=== PATIENT | male | born 1940 | race Hispanic/Latino ===

== ENCOUNTER 2017-06-01 06:04 | Day surgery (SDC) | payer OTHER ==
[2017-05-31 12:09] VITALS: BP 153/72
[2017-06-01] VITALS (10 sets, daily range): BP systolic 144–169; BP diastolic 64–82
[~2017-06-01] VITALS: Ht 168.9 cm; Wt 98.2 kg
[~2017-06-01 06:04] MED LIST: ACET-2743 PO; ATOR40TA71 PO; CLON0.3T PO; INSU100V3 IJ; INSU300I SQ; MULT-1192 PO; PHARMACY COMMUNICATION MISC SCH; PRED5TAB PO
[2017-06-01] MEDS ORDERED: ISOVUE-M 200 20 ML VIAL IT ONE (07:04)
[2017-06-01] MEDS ORDERED: MYCO250C36 PO (07:14)
[2017-06-01] MEDS ORDERED: CYCL25CA7 PO (07:14)
[2017-06-01 08:13] LABS: APPEARANCE,CSF CLEAR (CLEAR); COLOR,CSF COLORLESS (COLORLESS); CSF TUBE NUMBER 2; RED BLOOD CELL1,CSF 220 CMM (0-0); WHITE BLOOD CELL1,CSF 2 CMM (0-5)
[2017-06-21] MEDS ORDERED: CHLORTHALIDONE PO (12:59)
[2017-06-21] MEDS ORDERED: CYAN-35 PO (12:59)
[2017-06-21] MEDS ORDERED: ASPI-555 PO (12:59)
[2017-06-21] MEDS ORDERED: CILO100T PO (12:59)
[2017-06-21] MEDS ORDERED: FOLI0.8C PO (12:59)
[2017-06-21] MEDS ORDERED: VERA-7 PO (12:59)
[2017-06-21] MEDS ORDERED: VALS80TA29 PO (12:59)
== END 2017-06-01 11:50 | disposition home or self-care (01) ==
LOC: DAH 06:04
PROVIDERS: ATTEND Neurological Surgery
DX: M54.16 Radiculopathy, lumbar region (principal); M48.061 Spinal stenosis, lumbar region without neurogenic claudication; E11.9 Type 2 diabetes mellitus without complications; Z79.4 Long term (current) use of insulin; Z79.899 Other long term (current) drug therapy
CPT/HCPCS: 62304; 72132; 82948 ×2; 89051; 93005; Q9966

== ENCOUNTER 2017-06-23 06:00 | Observation (INO) | payer OTHER ==
[2017-06-21 12:07] VITALS: BP 158/63
[2017-06-21 12:33] LABS: BASOPHILS % (AUTO) 0.7 % (0.0-5.0); HEMATOCRIT 40.1 % (42-54); LYMPHOCYTES % (AUTO) 22.8 % (21.0-51.0); MEAN CORPUSCULAR HEMOGLOBIN 31.5 pg (27.0-33.0); MEAN CORPUSCULAR HGB CONC 34.3 g/dL (32.0-36.0); MEAN CORPUSCULAR VOLUME 91.9 fL (79-99); MONOCYTES % (AUTO) 8.3 % (3.0-13.0); NEUTROPHILS % (AUTO) 65.2 % (40.0-77.0); PLATELET COUNT (AUTO) 136 K/uL (130-400); RED BLOOD CELL COUNT(AUTO) 4.36 MIL/uL (4.50-6.20); RED CELL DISTRIBUTION WIDTH 14.3 % (11.0-15.5); WHITE BLOOD COUNT (AUTO) 10.3 K/uL (4.8-10.8)
[2017-06-21 12:41] LABS: CREATININE 1.1 mg/dL (0.5-1.5); POTASSIUM 3.9 mmol/L (3.5-5.1)
[~2017-06-23] VITALS: Ht 170.2 cm; Wt 97.0 kg
[2017-06-23] VITALS (24 sets, daily range): BP systolic 126–191; BP diastolic 60–91
[~2017-06-23 06:00] MED LIST changes: -ACET-2743 PO; +ASPI-555 PO; +CHLORTHALIDONE PO; +CILO100T PO; +CYAN-35 PO; +CYCL25CA7 PO; +FOLI0.8C PO; -INSU100V3 IJ; -MULT-1192 PO; +MYCO250C36 PO; -PHARMACY COMMUNICATION MISC SCH; +VALS80TA29 PO; +VERA-7 PO
[2017-06-23] MEDS ORDERED: BUPIVACAINE/PF 0.25% 30ML VIAL IJ ONE (06:35)
[2017-06-23] MEDS ORDERED: DURAMORPH PF1 MG/ML 10ML AMP IV ONE (06:37)
[2017-06-23] MEDS ORDERED: BACITRACIN 50,000 UNIT VIAL ONE (06:37)
[2017-06-23] MEDS ORDERED: THROMBIN-JMI 20000 UNIT KIT TP ONE (06:37)
[2017-06-23] MEDS ORDERED: EPINEPHRINE 1 MG/ML AMPULE ONE (06:38)
[2017-06-23] MEDS ORDERED: SODIUM CHLORIDE 0.9% 1000ML 1,000 ML IV ONE (06:39)
[2017-06-23] MEDS ORDERED: CEFAZOLIN SODIUM 1 GM VIAL ONE (06:54)
[2017-06-23] MEDS ORDERED: ONDANSETRON HCL 4 MG/2 ML VIAL ONE ×2 (07:20→09:20)
[2017-06-23] MEDS ORDERED: LIDOCAINE PF 2% 5ML ABBOJECT ONE (07:20)
[2017-06-23] MEDS ORDERED: GLYCOPYRROLATE 0.2 MG/ML 5 ML VIAL ONE (07:20)
[2017-06-23] MEDS ORDERED: PROPOFOL 10 MG/ML 20ML VIAL IV ONE (07:20)
[2017-06-23] MEDS ORDERED: MIDAZOLAM HCL 1 MG/ML 2ML VIAL ONE (07:20)
[2017-06-23] MEDS ORDERED: DEXAMETHASONE SOD PHOSPHATE 10MG/ML 1ML VIAL ONE ×2 (07:20→08:13)
[2017-06-23] MEDS ORDERED: SUCCINYLCHOLINE 200MG/10ML SYR ONE ×2 (07:20→09:20)
[2017-06-23] MEDS ORDERED: FENTANYL CITRATE PF 50 MCG/1 ML 2ML VIAL ONE ×2 (07:21→08:58)
[2017-06-23] MEDS ORDERED: PHENYLEPHRINE HCL 10 MG/ML 1ML VIAL IV ONE (09:20)
[2017-06-23] MEDS ORDERED: ROCURONIUM BROMIDE 10MG/1ML 5ML VL ONE ×2 (09:20)
[2017-06-23] MEDS ORDERED: ARTIFICIAL TEARS 3.5 GM OINTMENT ONE (09:21)
[2017-06-23] MEDS ORDERED: CLONIDINE HCL 0.3 MG TABLET PO PRN (11:00)
[2017-06-23] MEDS ORDERED: MORPHINE SULFATE 2 MG/ML 1ML SYG IVP PRN (11:00)
[2017-06-23] MEDS ORDERED: PROMETHAZINE HCL 25 MG/ML 1ML AMPULE IM PRN (11:00)
[2017-06-23] MEDS ORDERED: CEFAZOLIN 2GM / 50 ML 50 ML IV SCH (11:00)
[2017-06-23] MEDS ORDERED: SODIUM CHLORIDE 0.9% 10 ML VIAL IVP PRN (11:00)
[2017-06-23] MEDS ORDERED: HYDROCODONE/ACETAMINOPHEN 5/325 MG TAB PO PRN (11:00)
[2017-06-23] MEDS ORDERED: CEFAZOLIN SODIUM 1 GM VIAL IVP SCH (12:00)
[2017-06-23] MEDS: DEXAMETHASONE SOD PHOSPHATE 4 MG/ML 1ML VIAL IVP SCH ×3 (13:04→23:26)
[2017-06-23] MEDS: LACTATED RINGERS 1000ML 1,000 ML IV SCH (13:15)
[2017-06-23] MEDS ORDERED: GLUCAGON 1MG KIT 1 MG ML IM PRN (14:00)
[2017-06-23] MEDS ORDERED: DEXTROSE 50%-WATER 50 ML DISP.SYRIN IV PRN (14:00)
[2017-06-23] MEDS: INSULIN HUMULIN R 100 UNIT/ML 3ML SQ SCH ×2 (17:31→21:45)
[2017-06-23] MEDS ORDERED: ATORVASTATIN CALCIUM 40 MG TABLET PO SCH (21:00)
[2017-06-23] MEDS ORDERED: INSULIN GLARGINE 100 UNITS/ML 10 ML VIAL SQ SCH (21:00)
[2017-06-23] MEDS: MYCOPHENOLATE MOFETIL 250 MG CAPSULE PO SCH (21:38)
[2017-06-24] MEDS: LACTATED RINGERS 1000ML 1,000 ML IV SCH (00:10)
[2017-06-24] MEDS: DEXAMETHASONE SOD PHOSPHATE 4 MG/ML 1ML VIAL IVP SCH ×2 (04:48→11:00)
[2017-06-24 05:12] VITALS: BP 157/65
[2017-06-24] MEDS: INSULIN HUMULIN R 100 UNIT/ML 3ML SQ SCH ×2 (06:35→12:17)
[2017-06-24 07:30] VITALS: BP 210/85
[2017-06-24] MEDS: MYCOPHENOLATE MOFETIL 250 MG CAPSULE PO SCH (07:53)
[2017-06-24] MEDS ORDERED: CYANOCOBALAMIN (VITAMIN B-12) 1,000 MCG TABLET PO SCH (09:00)
[2017-06-24] MEDS ORDERED: ASPIRIN 81 MG EC TAB PO SCH (09:00)
[2017-06-24] MEDS ORDERED: VERAPAMIL HCL 240 MG SRTAB PO SCH (09:00)
[2017-06-24] MEDS ORDERED: FOLIC ACID 0.8 MG PO SCH (09:00)
[2017-06-24] MEDS ORDERED: LOSARTAN 50 MG TABLET PO SCH (09:00)
[2017-06-24] MEDS ORDERED: CYCLOSPORINE 75 MG PO SCH (09:00)
[2017-06-24] MEDS ORDERED: CHLORTHALIDONE PO SCH (09:00)
[2017-06-24] MEDS ORDERED: PREDNISONE 5 MG TABLET PO SCH (09:00)
[2017-06-24 11:00] VITALS: BP 197/74
[2017-06-24] MEDS ORDERED: HYDRALAZINE HCL 20 MG/ML VIAL IV SCH (11:45)
== END 2017-06-24 13:50 | disposition home or self-care (01) ==
LOC: DAH 06:00 → DAHIP 06:01 → 4AH 12:57
PROVIDERS: ADMIT Neurological Surgery; ATTEND Neurological Surgery
DX: M48.061 Spinal stenosis, lumbar region without neurogenic claudication (principal); I12.0 Hypertensive chronic kidney disease with stage 5 chronic kidney disease or end stage renal disease; N18.6 End stage renal disease; E11.22 Type 2 diabetes mellitus with diabetic chronic kidney disease; E78.00 Pure hypercholesterolemia, unspecified; E66.9 Obesity, unspecified; Z94.0 Kidney transplant status
CPT/HCPCS: 36415; 63047; 63048 ×2; 72020; 80048; 82948 ×6; 85025; 93005; 96372 ×2; 96374; 96375; 96376 ×2; A4218; A4344; A4510; A4600; A5113; A6219; G0378 ×32; J0171; J0330 ×2; J0360; J0690; J1100 ×5; J1815 ×4; J2001; J2250; J2274; J2370; J2405 ×2; J2704; J3010 ×2; J3490 ×4; J7030 ×2; J7120; J7517 ×2

== ENCOUNTER → 2017-09-05 | Outpatient (CLI) | payer OTHER ==
[~2017-09-05] MED LIST changes: +ACET-66 PO; +CHLO25TA3 PO; +DIAZ5TAB PO; +INSU100V3 SQ; +MULT-603 PO; -VALS80TA29 PO; +VALS80TA30 PO
== END | disposition home or self-care (01) ==
LOC: RAH 12:13
PROVIDERS: ATTEND Neurological Surgery
DX: M47.896 Other spondylosis, lumbar region (principal); M41.86 Other forms of scoliosis, lumbar region; M48.061 Spinal stenosis, lumbar region without neurogenic claudication; I70.0 Atherosclerosis of aorta; M25.78 Osteophyte, vertebrae
CPT/HCPCS: 72100

== ENCOUNTER 2017-09-06 17:43 | Observation (INO) | payer OTHER ==
[2017-09-05 22:57] VITALS: BP 149/72
[~2017-09-06] VITALS: Ht 170.2 cm; Wt 89.9 kg
[~2017-09-06 17:43] MED LIST changes: -ACET-66 PO; -CHLO25TA3 PO; -DIAZ5TAB PO; -INSU100V3 SQ; -MULT-603 PO
[2017-09-06] MEDS ORDERED: ONDANSETRON HCL MDV 20ML 2 MG/ML VIAL ONE (18:29)
[2017-09-06] MEDS ORDERED: FENTANYL CITRATE PF 50 MCG/1 ML 2ML VIAL ONE (18:30)
[2017-09-06 18:45] LABS: BASOPHILS % (AUTO) 0.5 % (0.0-5.0); EOSINOPHILS % (AUTO) 0.2 % (0.0-8.0); HEMATOCRIT 39.2 % (42-54); MEAN CORPUSCULAR HEMOGLOBIN 31.3 pg (27.0-33.0); MEAN CORPUSCULAR HGB CONC 34.4 g/dL (32.0-36.0); MEAN CORPUSCULAR VOLUME 91.2 fL (79-99); MONOCYTES % (AUTO) 6.9 % (3.0-13.0); NEUTROPHILS % (AUTO) 77.4 % (40.0-77.0); PLATELET COUNT (AUTO) 122 K/uL (130-400); RED CELL DISTRIBUTION WIDTH 13.8 % (11.0-15.5); WHITE BLOOD COUNT (AUTO) 10.3 K/uL (4.8-10.8)
[2017-09-06 18:58] LABS: CREATININE 1.2 mg/dL (0.5-1.5); POTASSIUM 3.6 mmol/L (3.5-5.1)
[2017-09-06 19:10] LABS: APPEARANCE,URINE Clear (CLEAR); BILIRUBIN,URINE Small (NEGATIVE); COLOR,URINE Dark Yellow (YELLOW); GLUCOSE, URINE (UA) Negative (NEGATIVE); KETONES,URINE Trace mg/dL (NEGATIVE); LEUKOCYTE ESTERASE ,URINE Trace (NEGATIVE); NITRATE,URINE Negative (NEGATIVE); OCCULT BLOOD,URINE Negative (NEGATIVE); PROTEIN,URINE POS 2+ (NEGATIVE)
[2017-09-06 19:34] LABS: BACTERIA,URINE Rare /HPF (None Seen); HYALINE CASTS, URINE 0-1 /LPF (0-1 /LPF); RBC,URINE None Seen /HPF (0-1); WBC,URINE 0-1 /HPF (0-1)
[2017-09-06] MEDS ORDERED: MORPHINE SULFATE 4 MG/1ML SYG IV PRN (19:45)
[2017-09-06] MEDS ORDERED: DEXTROSE 50%-WATER 50 ML DISP.SYRIN IV PRN (20:15)
[2017-09-06] MEDS ORDERED: GLUCAGON 1MG KIT 1 MG ML IM PRN (20:15)
[2017-09-06] MEDS ORDERED: HYDRALAZINE HCL 20 MG/ML VIAL IV PRN (20:15)
[2017-09-06] MEDS: INSULIN HUMULIN R 100 UNIT/ML 3ML SQ SCH (21:00)
[2017-09-06] MEDS: FAMOTIDINE 20MG TAB 20 MG TAB PO SCH (21:00)
[2017-09-06 22:57] VITALS: BP 149/72
[2017-09-07] MEDS: SODIUM CHLORIDE 0.9% 1000ML 1,000 ML IV SCH ×3 (01:23→15:38)
[2017-09-07] MEDS ORDERED: MYCO250C36 PO (02:56)
[2017-09-07] MEDS: KETOROLAC TROMETHAMINE 15MG/ML IV PRN ×3 (03:11→20:00)
[2017-09-07] MEDS ORDERED: MULT-603 PO (03:15)
[2017-09-07] MEDS ORDERED: CHLO25TA3 PO (03:15)
[2017-09-07] MEDS ORDERED: INSU100V3 SQ (03:15)
[2017-09-07] MEDS ORDERED: ACET-66 PO (03:15)
[2017-09-07 04:00] VITALS: BP 185/74
[2017-09-07 04:14] LABS: HEMATOCRIT 37.7 % (42-54); MEAN CORPUSCULAR HEMOGLOBIN 32.8 pg (27.0-33.0); MEAN CORPUSCULAR HGB CONC 35.9 g/dL (32.0-36.0); MEAN CORPUSCULAR VOLUME 91.3 fL (79-99); PLATELET COUNT (AUTO) 117 K/uL (130-400); RED BLOOD CELL COUNT(AUTO) 4.13 MIL/uL (4.50-6.20); RED CELL DISTRIBUTION WIDTH 13.7 % (11.0-15.5); WHITE BLOOD COUNT (AUTO) 9.6 K/uL (4.8-10.8)
[2017-09-07 04:30] LABS: ALBUMIN 3.1 g/dL (3.5-5.0); BILIRUBIN,TOTAL 0.8 mg/dL (0.2-1.0); CREATININE 1.1 mg/dL (0.5-1.5); POTASSIUM 3.5 mmol/L (3.5-5.1); TOTAL PROTEIN, SERUM 7.1 g/dL (6.0-8.3)
[2017-09-07] MEDS: INSULIN HUMULIN R 100 UNIT/ML 3ML SQ SCH ×4 (06:08→20:17)
[2017-09-07 08:03] VITALS: BP 149/61
[2017-09-07] MEDS: FAMOTIDINE 20MG TAB 20 MG TAB PO SCH ×2 (11:08→20:15)
[2017-09-07 11:53] VITALS: BP 170/71
[2017-09-07] MEDS ORDERED: DIAZ5TAB PO (12:01)
[2017-09-07 16:29] VITALS: BP 135/72
[2017-09-07 19:00] VITALS: BP 144/48
[2017-09-07] MEDS ORDERED: ACETAMINOPHEN EXTRA STRENGTH 500 MG TABLET PO PRN (19:15)
[2017-09-07] MEDS ORDERED: CLONIDINE HCL 0.3 MG TABLET PO PRN (19:15)
[2017-09-07] MEDS ORDERED: INSULIN HUMULIN R 100 UNIT/ML 3ML SQ PRN (19:15)
[2017-09-07] MEDS ORDERED: DIAZEPAM 5 MG TABLET PO PRN (19:15)
[2017-09-07] MEDS ORDERED: DOCUSATE SODIUM 100 MG CAP PO ONE (19:30)
[2017-09-07] MEDS: DOCUSATE SODIUM 100 MG CAP PO SCH (20:09)
[2017-09-07] MEDS: MYCOPHENOLATE MOFETIL 250 MG CAPSULE PO SCH (20:14)
[2017-09-07] MEDS: CILOSTAZOL 100 MG TAB PO SCH (20:15)
[2017-09-07] MEDS: CYCLOSPORINE, MODIFIED 25 MG CAPSULE PO SCH (21:00)
[2017-09-07] MEDS ORDERED: INSULIN GLARGINE HUM REC ANLOG 32 UNIT SQ SCH (22:00)
[2017-09-08] VITALS: BP 131/51
[2017-09-08] MEDS: KETOROLAC TROMETHAMINE 15MG/ML IV PRN (03:25)
[2017-09-08] MEDS: SODIUM CHLORIDE 0.9% 1000ML 1,000 ML IV SCH ×2 (03:30→09:04)
[2017-09-08 03:55] LABS: BASOPHILS % (AUTO) 0.3 % (0.0-5.0); EOSINOPHILS % (AUTO) 1.3 % (0.0-8.0); HEMATOCRIT 37.4 % (42-54); MEAN CORPUSCULAR HEMOGLOBIN 31.5 pg (27.0-33.0); MEAN CORPUSCULAR HGB CONC 34.4 g/dL (32.0-36.0); MEAN CORPUSCULAR VOLUME 91.6 fL (79-99); MONOCYTES % (AUTO) 10.3 % (3.0-13.0); NEUTROPHILS % (AUTO) 68.1 % (40.0-77.0); PLATELET COUNT (AUTO) 106 K/uL (130-400); RED BLOOD CELL COUNT(AUTO) 4.08 MIL/uL (4.50-6.20); RED CELL DISTRIBUTION WIDTH 13.5 % (11.0-15.5); WHITE BLOOD COUNT (AUTO) 11.5 K/uL (4.8-10.8)
[2017-09-08 04:00] VITALS: BP 115/50
[2017-09-08 04:07] LABS: CREATININE 1.4 mg/dL (0.5-1.5); POTASSIUM 3.4 mmol/L (3.5-5.1)
[2017-09-08] MEDS: INSULIN HUMULIN R 100 UNIT/ML 3ML SQ SCH ×2 (06:09→12:33)
[2017-09-08 08:04] VITALS: BP 141/54
[2017-09-08] MEDS: CILOSTAZOL 100 MG TAB PO SCH (08:53)
[2017-09-08] MEDS: FAMOTIDINE 20MG TAB 20 MG TAB PO SCH (08:53)
[2017-09-08] MEDS: DOCUSATE SODIUM 100 MG CAP PO SCH (08:54)
[2017-09-08] MEDS: MYCOPHENOLATE MOFETIL 250 MG CAPSULE PO SCH (08:56)
[2017-09-08] MEDS ORDERED: ATORVASTATIN CALCIUM 40 MG TABLET PO SCH (09:00)
[2017-09-08] MEDS ORDERED: FOLIC ACID 1 MG TABLET PO SCH (09:00)
[2017-09-08] MEDS ORDERED: VALSARTAN 80 MG PO SCH (09:00)
[2017-09-08] MEDS ORDERED: VERAPAMIL HCL 240 MG SRTAB PO SCH (09:00)
[2017-09-08] MEDS ORDERED: ASPIRIN 81 MG EC TAB PO SCH (09:00)
[2017-09-08] MEDS ORDERED: CYANOCOBALAMIN (VITAMIN B-12) 1,000 MCG TABLET PO SCH (09:00)
[2017-09-08] MEDS ORDERED: Chlorthalidone 25 MG PO SCH (09:00)
[2017-09-08] MEDS ORDERED: PREDNISONE 5 MG TABLET PO SCH (09:00)
[2017-09-08] MEDS ORDERED: MULTIVITAMIN TABLET PO SCH (09:00)
[2017-09-08] MEDS: CYCLOSPORINE, MODIFIED 25 MG CAPSULE PO SCH (09:01)
[2017-09-08 11:31] VITALS: BP 161/73
== END 2017-09-08 14:20 | disposition home or self-care (01) ==
LOC: EDH 17:43 → EDHIP 18:47 → 3CH 21:08
PROVIDERS: ADMIT Internal Medicine Nephrology; ATTEND Internal Medicine Nephrology
DX: G89.29 Other chronic pain (principal); M54.9 Dorsalgia, unspecified; I10 Essential (primary) hypertension; E11.9 Type 2 diabetes mellitus without complications; K80.20 Calculus of gallbladder without cholecystitis without obstruction; Z98.1 Arthrodesis status; Z83.3 Family history of diabetes mellitus; Z82.49 Family history of ischemic heart disease and other diseases of the circulatory system; Z91.81 History of falling
CPT/HCPCS: 36415 ×3; 72195; 73721 ×2; 80048 ×2; 80053; 81001; 82947; 82948 ×10; 85025 ×2; 85027; 93005; 96361 ×2; 96372; 96374; 96376 ×2; 97116; 97161; 99285; G0378 ×44; G8978; G8979; G8980; G8981; G8982; G8983; J1815; J1885 ×4; J3010; J7030; J7070; J7512; J7515 ×2; J7517 ×2